=== PATIENT | female | born 1975 | race Native Hawaiian/Other Pacific Islander ===

== ENCOUNTER 2023-07-03 12:15 | Emergency (ER) | payer OTHER ==
[2023-07-03 12:49] VITALS: TEMP 98.2
--- NOTE | 2023-07-03 12:49 | XR ---
EXAMINATION TYPE: XR ankle complete RT DATE OF EXAM: 07/03/2023 COMPARISON: NONE HISTORY: 47-year-old female painful weightbearing, fall pain rolled right ankle TECHNIQUE: 3 views FINDINGS: Circumferential soft tissue swelling especially medially and anteriorly. Possible subtle co rtical step off posterior cortex of the distal fibula only seen on the lateral view. Ankle mortise is otherwise congruent with preservation of the distal tibiofibular overlap. Talar dome is intact. IMPRESSION: Possible nondisplaced oblique fracture distal fibula with subtle finding only seen on the lateral vie w. Soft tissue swelling especially anteriorly and laterally.
--- NOTE | 2023-07-03 13:04 | ED ---
Lower Extremity Injury HPI - General Source: patient, RN notes reviewed Mode of arrival: wheelchair Limitations: no limitations <Sierra Baxter - Last Filed: 07/03/23 13:03> <Heriberto Hall - Last Filed: 07/03/23 13:52> - General Chief Complaint: Extremity Injury, Lower Stated Complaint: right ankle injury Time Seen by Provider: 07/03/23 13:03 - History of Present Illness Initial Comments: Patient is a 47-year-old female presented ER with chief complaint of a right ankle injury. Patient states she rolled her ankle and is now experiencing pain. Patient states of stress Med her pain is extremely worse. Patient denies any other injuries. (Sierra Baxter) - Related Data Allergies Allergy/AdvReac Type Severity Reaction Status Date / Time Penicillins Allergy Rash/Hives Verified 07/03/23 12:29 Review of Systems ROS Other: All systems not noted in ROS Statement are negative. <Sierra Baxter - Last Filed: 07/03/23 13:03> ROS Other: All systems not noted in ROS Statement are negative. <Heriberto Hall - Last Filed: 07/03/23 13:52> ROS Statement: Those systems with pertinent positive or pertinent negative responses have been documented in the HPI. Past Medical History Past Medical History: Hyperlipidemia Past Surgical History: No Surgical Hx Reported Smoking Status: Never smoker Past Alcohol Use History: None Reported Past Drug Use History: None Reported <Sierra Baxter - Last Filed: 07/03/23 13:03> General Exam Limitations: no limitations <Sierra Baxter - Last Filed: 07/03/23 13:03> General appearance: alert, in no apparent distress Head exam: Present: atraumatic, normocephalic Eye exam: Present: normal appearance, PERRL Neck exam: Present: normal inspection. Absent: tenderness Respiratory exam: Present: normal lung sounds bilaterally. Absent: respiratory distress, wheezes Cardiovascular Exam: Present: regular rate, normal rhythm GI/Abdominal exam: Present: soft. Absent: distended, tenderness Extremities exam: Present: joint swelling (Soft tissue swelling mid foot, no tenderness over the lateral malleolus.) <Heriberto Hall - Last Filed: 07/03/23 13:52> - General Exam Comments Initial Comments: Visual Physical Exam Vital signs reviewed General: Well-appearing, nontoxic, no acute distress. Head: Normocephalic, atraumatic Eyes: PERRLA, EOMI ENT: Airway patent Chest: Nonlabored breathing Skin: No visual rash, normal skin tone Neuro: Alert and oriented 3 Musculoskeletal: No gross abnormalities (Sierra Baxter) Course Vital Signs 07/03/23 12:27 Temperature 98.2 F Pulse Rate 100 Respiratory 20 Rate Blood Pressure 118/68 O2 Sat by Pulse 98 Oximetry Procedures - Orthopedic Splinting/Casting Injury #1 Side: right Lower Extremity Injury Location: ankle Lower Extremity Immobilizer: stirrup splint <Heriberto Hall - Last Filed: 07/03/23 13:52> Medical Decision Making <Sierra Baxter - Last Filed: 07/03/23 13:03> <Heriberto Hall - Last Filed: 07/03/23 13:52> - Medical Decision Making I performed the quick note portion of the exam. Electronically signed by Sierra Baxter PA-C (Sierra Baxter) Was pt. sent in by a medical professional or institution (JOSELYN Maria, TRAVELING ACCOUNTANT, urgent care, hospital, or care home...) When possible be specific @ -No Did you speak to anyone other than the patient for history (EMS, parent, family, police, friend...)? What history was obtained from this source @ -No Did you review nursing and triage notes (agree or disagree)? Why? @ -I reviewed and agree with nursing and triage notes Were old charts reviewed (outside hosp., previous admission, EMS record, old EKG, old radiological studies, urgent care reports/EKG's, care home records)? Report findings @ -No old charts were reviewed Differential Diagnosis (chest pain, altered mental status, abdominal pain women, abdominal pain men, vaginal bleeding, weakness, fever, dyspnea, syncope, headache, dizziness, GI bleed, back pain, seizure, CVA, palpatations, mental health, musculoskeletal)? @ -not applicable EKG interpreted by me (3pts min.). @ -As above X-rays interpreted by me (1pt min.). @ -Ankle x-ray, question of nondisplaced fracture posterior lateral malleolus. There is no point tenderness at this location. CT interpreted by me (1pt min.). @ -None done U/S interpreted by me (1pt. min.). @ -None done What testing was considered but not performed or refused? (CT, X-rays, U/S, labs)? Why? @ -None What meds were considered but not given or refused? Why? @ -None Did you discuss the management of the patient with other professionals (professionals i.e. DrAlvaro, PA, TRAVELING ACCOUNTANT, lab, RT, psych nurse, social media sr strategy manager, cylinder checker, teacher, armed security officer, pillowcase cutter)? Give summary @ -No Was smoking cessation discussed for >3mins.? @ -No Was critical care preformed (if so, how long)? @ -No Were there social determinants of health that impacted care today? How? (Homelessness, low income, unemployed, alcoholism, drug addiction, transportation, low edu. Level, literacy, decrease access to med. care, fci, rehab)? @ -No Was there de-escalation of care discussed even if they declined (Discuss DNR or withdrawal of care, Hospice)? DNR status @ -No] What co-morbidities impacted this encounter? (DM, HTN, Smoking, COPD, CAD, Cancer, CVA, ARF, Chemo, Hep., AIDS, mental health diagnosis, sleep apnea, morbi d obesity)? @ -[None] Was patient admitted / discharged? Hospital course, mention meds given and route, prescriptions, significant lab abnormalities, going to OR and other pertinent info. @ -[hospital course] 47 yo female with right ankle injury, x-ray shows lateral malleolus fracture. Patient placed in a splint and given orthopedic follow-up. She is provided with crutches in the emergency department. gnosed new problem with uncertain prognosis? @ -[No] Drug Therapy requiring intensive monitoring for toxicity (Heparin, Nitro, Insulin, Cardizem)? @ -[No] Were any procedures done? @ -yes, splinting Diagnosis/symptom? @ -[Sprain, possible lateral malleolus fracture Acute, or Chronic, or Acute on Chronic? @ -acute Uncomplicated (without systemic symptoms) or Complicated (systemic symptoms)? @ -[default] Side effects of treatment? @ -[No] Exacerbation, Progression, or Severe Exacerbation? @ -[No] Poses a threat to life or bodily function? How? (Chest pain, [place], [place], pneumonia, PE, COPD, DKA, ARF, appy, cholecystitis, CVA, Diverticulitis, Homicidal, Suicidal, threat to staff... and all critical care pts) @ -[No] (Heriberto Hall) Disposition <Sierra Baxter - Last Filed: 07/03/23 13:03> Is patient prescribed a controlled substance at d/c from ED?: No Time of Disposition: 13:52 <Heriberto Hall - Last Filed: 07/03/23 13:52> Clinical Impression: Ankle fracture Disposition: HOME SELF-CARE Condition: Good Instructions (If sedation given, give patient instructions): Ankle Fracture (ED) Referrals: Wander Obando MD [Primary Care Provider] - 1-2 days Chance Vilella MD [STAFF PHYSICIAN] - 1-2 days
[2023-07-03 14:40] VITALS: BP 124/78; PULSE 88; RESP 18
== END 2023-07-03 14:18 | disposition home or self-care (01) ==
LOC: EC 12:15
DX: S82.64XA Nondisplaced fracture of lateral malleolus of right fibula, initial encounter for closed fracture (principal); X50.1XXA Overexertion from prolonged static or awkward postures, initial encounter; Z88.0 Allergy status to penicillin
CPT/HCPCS: 29515 ×2; 99283 ×2; 73610; L4350